=== PATIENT | male | born 1995 | race Caucasian/White ===

== ENCOUNTER 2024-07-02 17:35 | Emergency (ER) | payer SELFPAY ==
[2024-07-02 17:39] VITALS: BP 147/100
--- NOTE | 2024-07-02 18:05 | ED.GENMED ---
History of Present Illness
General
Chief Complaint: Nose Bleed
Source: patient
Time Seen by Provider: 07/02/24 18:01
History of Present Illness
History of Present Illness:
29-year-old male with past medical history of ADHD, anxiety/depression presenting to the ER for evaluation of left nare epistaxis that has been intermittent over the last 2 weeks, today bleeding was persistent prompting him to go to urgent care
where patient reportedly had the area cauterized however states that after the area was cauterized started to bleed a little bit more prompting him to come to the ER. Since arriving to the ER the epistaxis seems to have subsided. Patient denies
any fevers, any other areas of bleeding, spontaneous bruising, lightheadedness or dizziness, use of anticoagulants or any other concerns.
Past History
Past History
ED Past Medical History: Psychiatric
ED Past Surgical History: None
Social History
Tobacco: Non-smoker
Alcohol: None
Drug: None
Personal: Single
Living: with family
Review of Systems
Review of Systems
All Other Systems: ROS reviewed and negative except as documented in HPI and ROS
Phy Exam
Physical Exam
Physical Exam:
GENERAL: Alert , in no apparent distress
EYE: conjunctiva clear
Head: Normocephalic atraumatic
NECK: Supple,
ENT: mmm. Area of cauterization noted within the anterior septum of the left nare without any active bleeding. No septal hematoma. No posterior oropharyngeal bleeding
LUNGS: no acute respiratory distress
NEUROLOGICAL: Alert and oriented
SKIN: Warm and dry, skin intact.
MUSCULOSKELETAL: well perfused.
PSYCH: Normal and appropriate interaction.
Scores
Heart Failure Risk
Heart Failure Risk Score: Not Applicable
Heart Score for Chest Pain Patients
STEMI patient?: Not applicable
Withdrawal Assessment of Alcohol
Withdrawal Assessment Completed?: Not applicable
Course
Vital Signs
Initial and Last Documented VS:
Initial Vital Signs
Temp Pulse Resp BP Pulse Ox
98.2 F 80 16 147/100 98
07/02/24 17:39 07/02/24 17:39 07/02/24 17:39 07/02/24 17:39 07/02/24 17:39
Last Documented Vital Signs
Temp Pulse Resp BP Pulse Ox
98.2 F 80 16 147/100 98
07/02/24 17:39 07/02/24 17:39 07/02/24 17:39 07/02/24 17:39 07/02/24 17:39
MDM/Problems Addressed
Differential Diagnosis Includes:
Uncomplicated epistaxis, anemia, thrombocytopenia
MDM/Problems Addressed:
29-year-old male otherwise healthy presenting to the ER for evaluation of intermittent epistaxis over the last 2 weeks. No fevers or infectious symptoms. No other areas of bleeding. Hemodynamically stable. Bleeding has already subsided without
any intervention here in the ER. At this time I do think it is reasonable for patient to be discharged home. Discussed supportive measures including saline nasal mist, humidifier at nighttime and avoiding blowing his nose if possible. ENT
outpatient follow-up information provided. Stable for discharge home.
*Pulse Oximetry
Patient hypoxic: no
*Critical Care Note
Total Time (30-74mins, 75-104mins- exclusive of procedures): Not Applicable
ED Attending Note
-
Portions of this chart may have been created with voice recognition software.� Occasional wrong word or��sound alike� substitutions may have occurred due to the inherent limitations of voice recognition software.
Discharge Plan
Departure
Patient Disposition: Home (Routine Discharge)
Date of Disposition: 07/02/24
Time of Disposition: 18:05
Patient with high blood pressure during this ER visit?: Yes
Discharge Problem:
Epistaxis
Instructions: Nosebleeds (DC)
Referrals:
Tray Dumont MD [Active] - (ENT - Call for follow up appointment as needed)
Interventions
Interventions:
*Risk Screen - Suicide Last Done: 07/02/24 17:39
*General Assessment Last Done: 07/02/24 18:18
*Neglect/Abuse Screening Last Done: 07/02/24 17:39
ED- Fall Risk Assessment Last Done: 07/02/24 18:18
*ED COVID-19 Vaccine History Last Done: 07/02/24 18:18
*Nursing Disposition Last Done: 07/02/24 18:18
ED-EENT Assessment Last Done: 07/02/24 18:18
Discharge Date and Time
Print Language: GERMAN
== END 2024-07-02 18:19 | disposition home or self-care (01) ==
LOC: EMR 17:35
PROVIDERS: EMERGENCY PHYSICIAN Emergency Medicine
DX: R04.0 Epistaxis (principal); R03.0 Elevated blood-pressure reading, without diagnosis of hypertension
CPT/HCPCS: 99281

== ENCOUNTER 2024-07-05 20:27 | Emergency (ER) | payer OTHER, SELFPAY ==
[2024-07-05 20:28] VITALS: BP 120/89
--- NOTE | 2024-07-05 22:19 | ED.GENMED ---
History of Present Illness
General
Chief Complaint: Skin Problem
Source: patient
Exam Limitations: none
Time Seen by Provider: 07/05/24 21:15
Nursing documentation reviewed up to this point in time: agreed with
History of Present Illness
History of Present Illness:
29 Y/O M R hand dominant
2 days R middle fingertip swelling an dpain
he does bite his nails
no fever
no drainage
no wounds
no recent injury
nothing taken for pain
Past History
Past History
ED Past Medical History: Psychiatric
ED Past Surgical History: None
Social History
Tobacco: Non-smoker
Alcohol: None
Drug: None
Personal: Single
Living: with family
Review of Systems
Review of Systems
Allergies reviewed?: Yes
All Other Systems: Not applicable
Phy Exam
Physical Exam
Physical Exam:
GENERAL: Alert , in no apparent distress, comfortable at rest
HEAD: NCAT
CV: cap refill intact
NEUROLOGICAL: Alert and oriented, no focal neuro deficits, , 5/5 strength, sensation intact, ambulation slight limp right leg
SKIN: swelling, slight redness around the prox nail fold
no felon
MUSCULOSKELETAL: middle fingertip swelling dorsally around nail but fat pad soft, nontender, no felon
full ROM
PSYCH: Normal and appropriate interaction.
Course
Vital Signs
Initial and Last Documented VS:
Initial Vital Signs
Temp Pulse Resp BP Pulse Ox
36.8 C 94 19 120/89 98
07/05/24 20:28 07/05/24 20:28 07/05/24 20:28 07/05/24 20:28 07/05/24 20:28
Last Documented Vital Signs
Temp Pulse Resp BP Pulse Ox
36.8 C 94 19 120/89 98
07/05/24 20:28 07/05/24 20:28 07/05/24 20:28 07/05/24 20:28 07/05/24 20:28
ED Attending Note
-
Portions of this chart may have been created with voice recognition software.� Occasional wrong word or��sound alike� substitutions may have occurred due to the inherent limitations of voice recognition software.
Discharge Plan
Departure
Condition: Fair
Covid-19: Not Applicable
Discharge Problem:
[place]
Instructions: [facility] ED
Referrals:
NONE,* [Family Provider] -
Activity Restrictions/Additional Instructions:
SOAK YOUR FINGER IN WARM WATER FOR 10 MINUTES A FEW TIMES A DAY THE NEXT 2 DAYS TO HELP THIS HEAL
RETURN FOR ANY CONCERNS LIKE WORSENING REDNESS, WORSENING SWELLING/FIRMNESS, FEVER, ETC
Interventions
Interventions:
*Risk Screen - Suicide Last Done: 07/05/24 20:28
*General Assessment Last Done: 07/05/24 20:34
*Neglect/Abuse Screening Last Done: 07/05/24 20:28
*ED COVID-19 Vaccine History Last Done: 07/05/24 20:34
ED-Skin Assessment Last Done: 07/05/24 20:34
Discharge Date and Time
Print Language: GREENLANDIC
== END 2024-07-05 22:58 | disposition home or self-care (01) ==
LOC: EMR 20:27
PROVIDERS: EMERGENCY PHYSICIAN Student in an Organized Health Care Education/Training Program
DX: L03.011 Cellulitis of right finger (principal); M79.644 Pain in right finger(s); F90.9 Attention-deficit hyperactivity disorder, unspecified type; F41.9 Anxiety disorder, unspecified; F32.A Depression, unspecified
CPT/HCPCS: 99282